=== PATIENT | male | born 1955 | race Caucasian/White ===

== ENCOUNTER → 2017-01-24 | Outpatient (CLI) | payer OTHER ==
[~2017-01-24] MED LIST: CYCL-331 PO; DIAZ10TA PO; HYDR-971 PO; IBUP800T19 PO; LEFL20TA PO; LEVO150T62 PO; LOSA100T2 PO; MULT1TAB52 PO; OLME1TAB25 PO; SIMV20TA3 PO; TADA5TAB PO; UBID10CA5 PO; ZOLP10TA PO
--- NOTE | 2017-01-24 13:25 | RAD ---
Foot x-rays Indication: Metatarsalgia second right toe Technique: 3 views of the right foot Comparison: None Findings: No acute fracture or dislocation. No arthritic process. No soft tissue abnormality. Impression: No acute fracture or dislocation. No evidence of arthritic process. MTDD
== END | disposition home or self-care (01) ==
LOC: DXRADRC 08:29
PROVIDERS: ATTEND Podiatrist Foot & Ankle Surgery
DX: M77.41 Metatarsalgia, right foot (principal)
CPT/HCPCS: 73630

== ENCOUNTER → 2019-05-10 | Outpatient (CLI) | payer OTHER ==
[~2019-05-10] MED LIST changes: +HYDR-3165 PO; -HYDR-971 PO; +SIMV20TA18 PO; -SIMV20TA3 PO
[2019-05-10] MEDS: BARIUM SULFATE 60% 355 ML SUSP PO ONE (09:51)
--- NOTE | 2019-05-10 18:57 | RAD ---
Small bowel follow-through study 05/10/2019 CLINICAL HISTORY: Rapid loose stools in the morning. TECHNIQUE: A small bowel follow-through study was performed under radiographic control. No fluoroscopy was performed. 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 The lung bases are clear. The abdominal bowel gas pattern is nonobstructive. No radiopaque calculus is seen. Very mild S-shaped curvature of the thoracolumbar spine is seen. Degenerative changes are seen involving the lower thoracic and throughout the lumbar spine. The mucosal pattern of the duodenum, jejunum, ileum and terminal ileum is within normal limits. The small bowel transit time is within normal limits. The cecum is in its normal location within the right lower quadrant of the abdomen. No extrinsic mass effect upon the small bowel is seen. IMPRESSION: Negative study. Electronically signed by: Austin Crum MD (05/10/2019 6:54 PM) [id number]
== END | disposition home or self-care (01) ==
LOC: RAD 08:06
PROVIDERS: ATTEND Internal Medicine Gastroenterology
DX: R19.7 Diarrhea, unspecified (principal); M41.85 Other forms of scoliosis, thoracolumbar region; M47.815 Spondylosis without myelopathy or radiculopathy, thoracolumbar region
CPT/HCPCS: 74250

== ENCOUNTER 2021-02-20 11:41 | Inpatient (IN) | payer OTHER ==
[~2021-02-20] VITALS: Ht 182.9 cm; Wt 86.8 kg
[~2021-02-20 11:41] MED LIST changes: +MULT-445 PO; -MULT1TAB52 PO
--- NOTE | 2021-02-20 12:19 | EKG ---
[address] [address] Test Date: 2021-02-20 Test Time: 12:11:49 Pat Name: ROSALBA MARTINEZ Department: Room: Gender: M Shirt Bander: NICOLASA : 1955 Requested By: CARMENZA NATH Order Number: [id number] Reading MD: Measurements Intervals Isabela Rate: 92 P: 59 [place]: 162 QRS: 72 QRSD: 92 T: 55 QT: 358 QTc: 448 Interpretive Statements SINUS RHYTHM NORMAL ECG RI6.02 No previous ECG available for comparison
[2021-02-20 12:30] LABS: BASO % 1 % (0-3); EOS # 0.4 x10^3/uL (0.0-0.7); EOS % 8 % (0-3); HEMATOCRIT 41.3 % (39.0-53.0); HEMOGLOBIN 14.1 g/dL (13.0-17.5); LYMPH # 1.4 x10^3/uL (1.0-4.8); LYMPH % 26 % (24-48); MEAN CORPUSCULAR HEMOGLOBIN 32 pg (25-35); MEAN CORPUSCULAR HGB CONC 34 g/dL (31-37); MEAN CORPUSCULAR VOLUME 95 fL (79-100); MONO # 0.9 x10^3/uL (0.0-1.1); MONO % 17 % (0-9); NEUT # 2.7 x10^3uL (1.8-7.7); NEUT % 49 % (31-73); PLATELET COUNT 370 x10^3/uL (140-400); RED BLOOD COUNT 4.36 x10^6/uL (4.30-5.70); RED CELL DISTRIBUTION WIDTH 13.5 % (11.5-14.5); WHITE BLOOD COUNT 5.5 x10^3/uL (4.0-11.0)
[2021-02-20 12:40] LABS: CALCIUM 9.3 mg/dL (8.5-10.1); CREATININE 2.3 mg/dL (0.7-1.3); GFR 28.8; POTASSIUM 4.1 mmol/L (3.5-5.1)
[2021-02-20 12:45] LABS: ALBUMIN 3.8 g/dL (3.4-5.0); ALBUMIN/GLOBULIN RATIO 1.1 (1.0-1.7); TOTAL BILIRUBIN 0.5 mg/dL (0.2-1.0); TOTAL PROTEIN 7.4 g/dL (6.4-8.2)
[2021-02-20] MEDS ORDERED: IV NORMAL SALINE 1,000ML 1,000 ML IV ONE ×2 (12:45→13:45)
--- NOTE | 2021-02-20 12:45 | PHYS DOC ---
Past History Additional Past Medical Histor: Rheumatoid arthritis, BPH, prostatitis Past Surgical History: Other General Adult EDM: Chief Complaint: ALLERGIC REACTION HPI: HPI: Patient is a 65 year old male with history of rheumatoid arthritis on Humira, BPH, recent diagnosis of prostatitis who presents with generalized weakness, shortness of breath, dizziness since yesterday afternoon. He had been treated for prostatitis since 02/10 with Bactrim, but it was causing GI upset. Yesterday afternoon he was switched to ciprofloxacin by his PCP. Within an hour after taking the ciprofloxacin he began having the symptoms that are persisted throughout the night. He denies any chest pain. No abdominal pain. He has had chills overnight. No outright fevers. He does have some mild dysuria that is worse than it had been previously. No wheezes, he has a rash that was pre-existing to taking ciprofloxacin and has not worsened, no oral swelling. Review of Systems: Review of Systems: Constitutional: Denies fever. Reports chills Eyes: Denies change in visual acuity HENT: Denies nasal congestion or sore throat Respiratory: Denies cough. Reports shortness of breath Cardiovascular: Denies chest pain or edema GI: Denies abdominal pain, nausea, vomiting, bloody stools or diarrhea : Reports dysuria Musculoskeletal: Denies back pain or joint pain Integument: Denies rash Neurologic: Reports dizziness. Denies headache, focal weakness or sensory changes Endocrine: Denies polyuria or polydipsia Lymphatic: Denies swollen glands Psychiatric: Denies depression or anxiety Current Medications: Current Meds: Current Medications Medications (Trade) Dose Ordered Sig/[facility] Start Time Stop Time Status Last Admin Dose Admin Sodium Chloride 1,000 ml @ 1,000 mls/hr 1X ONCE 02/20/21 12:45 02/20/21 13:44 Allergies: Allergies: Allergies Coded Allergies Type Severity Reaction Last Updated Verified No Known Drug Allergies 02/20/21 No Physical Exam: PE: Constitutional: Appears ill. Diaphoretic. Non-toxic. [] HENT: Normocephalic, atraumatic, oropharynx is clear without evidence of edema. Uvula midline.. [] Eyes: conjunctiva normal, no discharge. [] Neck: Normal range of motion, no tenderness, supple, no stridor. [] Cardiovascular:Heart rate regular rhythm, no murmur [] Lungs & Thorax: Bilateral breath sounds clear to auscultation. No wheezes. [] Abdomen: soft, no tenderness, no masses, no pulsatile masses. [] Skin: Warm, dry, maculopapular rash on bilateral arms. No urticaria. [] Extremities: No tenderness, no cyanosis, no clubbing, ROM intact, no edema. [] Neurologic: Alert and oriented X 3, normal motor function, normal sensory function, no focal deficits noted. [] Psychologic: Affect normal, judgement normal, mood normal. [] Current Patient Data: Labs: Laboratory Tests Test 02/20/21 11:56 White Blood Count 5.5 x10^3/uL (4.0-11.0) Red Blood Count 4.36 x10^6/uL (4.30-5.70) Hemoglobin 14.1 g/dL (13.0-17.5) Hematocrit 41.3 % (39.0-53.0) Mean Corpuscular Volume 95 fL (79-100) Mean Corpuscular Hemoglobin 32 pg (25-35) Mean Corpuscular Hemoglobin Concent 34 g/dL (31-37) Red Cell Distribution Width 13.5 % (11.5-14.5) Platelet Count 370 x10^3/uL (140-400) Neutrophils (%) (Auto) 49 % (31-73) Lymphocytes (%) (Auto) 26 % (24-48) Monocytes (%) (Auto) 17 % (0-9) H Eosinophils (%) (Auto) 8 % (0-3) H Basophils (%) (Auto) 1 % (0-3) Neutrophils # (Auto) 2.7 x10^3uL (1.8-7.7) Lymphocytes # (Auto) 1.4 x10^3/uL (1.0-4.8) Monocytes # (Auto) 0.9 x10^3/uL (0.0-1.1) Eosinophils # (Auto) 0.4 x10^3/uL (0.0-0.7) Basophils # (Auto) 0.0 x10^3/uL (0.0-0.2) Vital Signs: Vital Signs Date Time Temp Pulse Resp B/P (MAP) Pulse Ox O2 Delivery O2 Flow Rate FiO2 02/20/21 11:50 98.3 93 18 116/62 (80 99 Room Air EKG: EKG: [] Radiology/Procedures: Radiology/Procedures: [] Impressions: [address] [address] IMAGING REPORT Signed PATIENT: ROSALBA MARTINEZ ACCOUNT: [id number] : 1955 LOCATION: ER AGE: 65 SEX: M EXAM STATUS: REG ER ORD. PHYSICIAN: CARMENZA NATH MD REASON: shortness of breath, dizziness PROCEDURE: CHEST AP ONLY AP portable chest. HISTORY: Short of breath, dizziness AP view was taken of the chest. There is no pneumothorax or pleural effusion. Lungs are clear. Heart is normal in size. There is arthritis in the right shoulder with joint space narrowing and spurring. IMPRESSION: 1. No acute chest disease. Electronically signed by: Calos Peguero MD (02/20/2021 12:48 PM) [id number] DICTATED AND SIGNED BY: CALOS PEGUERO MD DATE: 02/20/211246 CC: CARMENZA NATH MD; KIANA [place] ~MTH0 0 Heart Score: C/O Chest Pain: No Risk Factors: Risk Factors: DM, Current or recent (<one month) smoker, HTN, HLP, family history of CAD, obesity. Risk Scores: Score 0 - 3: 2.5% MACE over next 6 weeks - Discharge Home Score 4 - 6: 20.3% MACE over next 6 weeks - Admit for Clinical Observation Score 7 - 10: 72.7% MACE over next 6 weeks - Early Invasive Strategies Course & Med Decision Making: Course & Med Decision Making Pertinent Labs and Imaging studies reviewed. (See chart for details) Patient is 65-year-old male with history of RA on Humira, and recent diagnosis of prostatitis who presents with chills, generalized weakness, shortness of breath, lightheadedness after switching from Bactrim to ciprofloxacin yesterday. On arrival is afebrile with normal vital signs. Shortly after arrival he had lower blood pressures down to 82/54. Most recently 91/51. He denies any change in symptoms with this blood pressure change. Sepsis work-up with CXR, UA, blood cultures, lactic acid obtained. No evidence of anaphylactic reaction. Considered type III hypersensitivity given he is on a monoclonal antibody. IV fluids started. Will give ceftriaxone. Will continue to monitor. --- Lactic slightly elevated 2.1 BP stable with MAP of 70 currently. GUANACO with creatinine 2.3, from baseline 0.85 last month. potential causes for GUANACO are bactrim, pre-renal, or obstructive. Awaiting urinalysis and have placed an order for RP US to r/o obstructive uropathy. Will request bed for admission. [address] Disclaimer: [employer] Disclaimer: This electronic medical record was generated, in whole or in part, using a voice recognition dictation system. Departure Departure: Impression: Primary Impression: GUANACO (acute kidney injury) Additional Impressions: Hypotension Prostatitis Sepsis Disposition: ADMITTED INPATIENT Admitting Physician: Davidson Caraballo Condition: IMPROVED Referrals: KIANA [place] (PCP) CARMENZA NATH MD Feb 20, 2021 12:45
--- NOTE | 2021-02-20 12:50 | RAD ---
AP portable chest. HISTORY: Short of breath, dizziness AP view was taken of the chest. There is no pneumothorax or pleural effusion. Lungs are clear. Heart is normal in size. There is arthritis in the right shoulder with joint space narrowing and spurring. IMPRESSION: 1. No acute chest disease. Electronically signed by: Calos Peguero MD (02/20/2021 12:48 PM) [id number]
[2021-02-20] MEDS ORDERED: cefTRIAXone SODIUM 1 GM VIAL ONE (13:33)
[2021-02-20] MEDS ORDERED: IV NORMAL SALINE 50ML 50 ML ONE ×3 (13:33→13:52)
[2021-02-20] MEDS ORDERED: PIPERACILLIN/TAZOBACTAM 3.375 GM in IV NORMAL SALINE 50ML 50 ML IV ONE (13:45)
[2021-02-20] MEDS ORDERED: PIPERACILLIN/TAZOBACTAM 3.375 GM VIAL IV ONE ×2 (13:45→13:52)
[2021-02-20] MEDS ORDERED: PIPERACILLIN/TAZOBACTAM 4.5 GM in IV NORMAL SALINE 50ML 50 ML IV ONE (13:45)
--- NOTE | 2021-02-20 13:53 | RAD ---
EXAM: RENAL ULTRASOUND CLINICAL HISTORY: Acute kidney injury R/O HYDRO / Spl. Instructions: / History: COMPARISON: None available. TECHNIQUE: Ultrasound examination of the bilateral kidneys and urinary bladder was performed. FINDINGS: The longitudinal and AP and transverse dimensions of the right kidney are 12.6 cm and 4.8 cm and 5.6 cm respectively. The longitudinal and AP and transverse dimensions of the left kidney are 11.9 cm and 4.9 cm and 4.9 cm respectively. No hydronephrosis or renal mass or perinephric fluid collection is seen on either side. Urinary bladder is mildly distended. It measures 144 cc. No intraluminal echodensities or masses are seen. Bilateral ureteral jets are apparent IMPRESSION: No hydronephrosis. Electronically signed by: Roberto Velasquez MD (02/20/2021 1:51 PM) [id number]
[2021-02-20 15:14] LABS: BACTERIA,URINE 0 /HPF (0-FEW); BILIRUBIN,URINE NEG (NEG); CLARITY,URINE CLEAR; COLOR,URINE YELLOW; GLUCOSE,URINE NEG (NEG); NITRITE,URINE NEG (NEG); RBC,URINE OCC /HPF (0-2); SQUAMOUS EPITHELIAL CELL,UR FEW /LPF; UROBILINOGEN,URINE 0.2 mg/dL (0.2 mg/dL)
[2021-02-20 15:15] LABS: HYALINE CASTS, URINE FEW /HPF
--- NOTE | 2021-02-20 15:23 | HP ---
ADMIT DATE: 02/20/2021 ATTENDING PHYSICIAN: Dr. Caraballo. CHIEF COMPLAINT: Weakness. 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 He has had a history of prostatism and a urinary tract infection. He has had antibiotics. He had a week's worth of Bactrim. He was still symptomatic. He was started on Cipro. Unfortunately, Cipro has a limited coverage. He developed low-grade fevers, chills, myalgias, not feeling well and clinically has symptoms not necessarily of sepsis, but of a systemic inflammatory response syndrome. Blood pressure was marginal, 95 mm systolic. Cultures are still pending. He is admitted then for further IV antibiotics and systemic inflammatory response syndrome. He is immunocompromised. He has rheumatoid arthritis of longstanding and takes monoclonal antibiotics. PAST MEDICAL HISTORY: Significant for degenerative arthritis, carpal tunnel surgery and rheumatoid arthritis. He sees a car tester. CURRENT MEDICATIONS: Include cyclobenzaprine p.r.n. Valium, hydrocodone, ibuprofen, leflunomide, Synthroid, losartan, multivitamin, Benicar, Zocor, Cialis p.r.n., Coenzyme Q10 and Ambien at bedtime. SOCIAL HISTORY: He is a nondrinker, nonsmoker. ALLERGIES: HE IS ALLERGIC INTOLERANT TO BACTRIM. PAST SURGICAL HISTORY: Other surgical history includes thyroidectomy for goiter. He is on Synthroid 150 mcg daily. He sees a car tester. FAMILY HISTORY: Mom is still alive at age 94. Father of lung and brain cancer at age 67. 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 No recent COVID exposure. REVIEW OF SYSTEMS: All other systems reviewed and turned to be negative. PHYSICAL EXAMINATION: GENERAL: When I saw him, this is a very pleasant gentleman who appears younger than his stated age. VITAL SIGNS: Initial vital signs in the ED showed a blood pressure of 95 and then improved to 124/62 mmHg. He was afebrile, oxygen saturation 96% on room air. HEENT: Head is without trauma. Pupils are reactive. Sclerae nonicteric. Oropharynx is clear. NECK: Supple, no bruits identified. LUNGS: Otherwise clear. CARDIOVASCULAR: Regular heart tones. No gallops. ABDOMEN: Soft. EXTREMITIES: Without edema. NEUROLOGIC: Focally intact. SKIN: Warm and dry. I examined his hands and other joints. He has remarkably preserved joints without any severe deformities. PERTINENT LABORATORY STUDIES: His hemoglobin today is 14.1 g/dL, white count 5500. Chemistry panel: Creatinine is up to 2.3 mg%, BUN is 34. Electrolytes within normal range. ASSESSMENT: 1. A 65-year-old gentleman with symptomatic urinary tract infection. 2. Acute on chronic renal failure, probably due to Bactrim. 3. History of rheumatoid arthritis. 4. History of previous thyroidectomy. 5. History of carpal tunnel surgery. PLAN: 1. Admit to the inpatient unit. 2. IV hydration. 3. Rocephin and Zosyn has been ordered. 4. Follow up chemistries. 5. Diet as tolerated. 6. We will hold off his blood pressure meds for now. HILDA DR: Elda TID: [id number]
[2021-02-20 18:20] VITALS: BP 120/76
[2021-02-20 18:48] VITALS: BP 195/87
--- NOTE | 2021-02-20 19:18 | NUR ---
The patient, ROSALBA MARTINEZ, 65 y/o, M admitted by GALINA MORENO MD, was given written information regarding hospital policies, unit procedures and contact persons. Valuables were checked and left with patient.
[2021-02-20] MEDS: IV NORMAL SALINE 1,000ML 1,000 ML IV SCH (19:30)
[2021-02-20] MEDS ORDERED: ADAL40PE SQ (20:41)
[2021-02-20] MEDS: PIPERACILLIN/TAZOBACTAM 3.375 GM in IV NORMAL SALINE 50ML 50 ML IV SCH (21:45)
[2021-02-20 22:01] VITALS: BP 104/61
[2021-02-20 23:39] VITALS: BP 111/69
[2021-02-21] MEDS: IV NORMAL SALINE 1,000ML 1,000 ML IV SCH ×2 (03:00→13:33)
[2021-02-21 05:14] VITALS: BP 127/81
[2021-02-21] MEDS: PIPERACILLIN/TAZOBACTAM 3.375 GM in IV NORMAL SALINE 50ML 50 ML IV SCH ×3 (05:18→20:47)
[2021-02-21] MEDS: LEVOTHYROXINE 150 MCG TABLET PO SCH (05:19)
--- NOTE | 2021-02-21 05:45 | NUR ---
Nursing note: Pt did not sleep much/at all during shift. No c/o pain throughout shift. Pt reported increased urination and slight decrease in frequency of urination from previous day. VSS.
[2021-02-21] MEDS: LEFLUNOMIDE 20 MG PO SCH (08:28)
[2021-02-21 09:28] LABS: CREATININE 1.1 mg/dL (0.7-1.3); GFR 67.4; POTASSIUM 4.1 mmol/L (3.5-5.1)
[2021-02-21 11:31] VITALS: BP 127/72
[2021-02-21 11:33] VITALS: BP_SYST 124; BP_SYST 130; BP_DIAS 67; BP_DIAS 76
[2021-02-21 15:52] VITALS: BP 113/72
[2021-02-21 20:31] VITALS: BP 121/73
--- NOTE | 2021-02-21 20:43 | PN ---
DATE: 02/21/2021 SUBJECTIVE: The patient is resting, slightly propped up in bed, in no apparent respiratory distress. He is awake, alert. On questioning him, he is feeling generally much improved. He denied any fever, chills or rigors. Denied any dysuria, frequency or hematuria. His blood culture has showed no growth after 1 day. PHYSICAL EXAMINATION: GENERAL: When I examined him this morning, he looked well with no pallor, jaundice, or cyanosis. No lymphadenopathy, no thyromegaly, no jugular venous distention. No lower limb edema. VITAL SIGNS: Her heart rate was 72, blood pressure is 130/76, temperature was 98.3, respiratory rate was 18 and oxygen saturation was 96% on room air. HEAD, EYES, EARS, NOSE, AND THROAT: Normocephalic, atraumatic. NECK: Supple. HEART: Normal first and second heart sounds, no gallop or murmur. CHEST: Clear to auscultation, no crepitation or rhonchi. ABDOMEN: Distended, soft, nontender. NEUROLOGIC: He was grossly intact. His intake and output are incompletely recorded. LABORATORY DATA: This morning showed a serum sodium 137, potassium 4.1, chloride 102, bicarbonate 24, anion gap of 11, BUN 24, creatinine was 1.1. Estimated GFR was 67 mL per minute. His blood sugar was 137. His lactic acid is down to 1.3 and calcium was 8. His urinalysis showed that leukocyte esterase was negative, occasional rbc's, 5-10 wbc's and no bacteria. ASSESSMENT: 1. Acute kidney injury, resolved. His creatinine is down from 2.3 down to 1.1. 2. Symptoms as probably suggestive of benign prostatic hypertrophy. 3. Rheumatoid arthritis. 4. Hypothyroidism. 5. Carpal tunnel surgery, unfortunately he is on multiple potential nephrotoxic medications that included ibuprofen. He is also on Benicar, hydrochlorothiazide and Humira as well as leflunomide. PLAN: My plan is to continue with IV antibiotic. Continue with IV fluids for the time being and he probably has to either consider different antihypertensive medication, perhaps like amlodipine. He will be evaluated tomorrow by Dr. Caraballo and if he is stable, he can be discharged home to continue with treatment of his UTI as an outpatient, although his urinalysis was unremarkable and so far the blood cultures are negative. AMM/EKT DR: Manjula TID: [id number]
[2021-02-21 23:49] VITALS: BP 133/71
[2021-02-22] MEDS: IV NORMAL SALINE 1,000ML 1,000 ML IV SCH ×2 (01:07→12:00)
[2021-02-22] MEDS: LEVOTHYROXINE 150 MCG TABLET PO SCH (05:12)
[2021-02-22] MEDS: PIPERACILLIN/TAZOBACTAM 3.375 GM in IV NORMAL SALINE 50ML 50 ML IV SCH (05:12)
[2021-02-22 05:51] VITALS: BP 145/75
[2021-02-22] MEDS: LEFLUNOMIDE 20 MG PO SCH (08:14)
[2021-02-22 09:23] LABS: CALCIUM 8.5 mg/dL (8.5-10.1); CREATININE 0.8 mg/dL (0.7-1.3); GFR 97.3; POTASSIUM 4.3 mmol/L (3.5-5.1)
--- NOTE | 2021-02-22 10:11 | DS ---
DATE OF DISCHARGE: 02/22/2021 ATTENDING PHYSICIAN: Dr. Caraballo. FINAL DISCHARGE DIAGNOSES: 1. Systemic inflammatory response syndrome. 2. Urinary tract infection. 3. Chronic prostatism. 4. Acute on chronic renal failure and kidney injury due to Bactrim, resolved. 5. History of previous thyroidectomy, on replacement. 6. Rheumatoid arthritis, in remission. HISTORY AND PHYSICAL: The patient is a pleasant 65-year-old gentleman, fairly active. He is admitted with symptoms of systemic inflammatory response syndrome and urinary tract infection. The Bactrim he was on was stopped. He had elevation of his serum creatinine. PHYSICAL EXAMINATION: Please see my dictated note. PERTINENT LABORATORY AND X-RAY STUDIES: Admission creatinine was 2.3 mg percent. Repeated the next day with hydration was down to 1.1 mg/dL, BUN 24. Nonfasting blood sugar 126, hemoglobin was 14.1 grams, white count 5500. COURSE IN THE HOSPITAL: The patient was started on intravenous Zosyn. He did well. Dose is adjusted for renal clearance. Cultures remain negative at 48 hours. By the third hospital day, his vital signs are stable. Creatinine back to baseline. Blood pressure is 130/70. He was afebrile. He looked well. He was ambulating without any assistance. He wanted to go home. I recommended 7 more days of Augmentin 875 one p.o. b.i.d. I gave him some refills in case he has further issues down the road. Should he have further prostate issues, it would be worthwhile to refer him to see a urologist as an outpatient. His other home meds are unchanged. He will continue his Humira dose as scheduled, Arava, Synthroid 150 mcg daily, multivitamin and Benicar hydrochlorothiazide dose unchanged. The patient was then discharged from our hospital in stable condition with explicit drug and followup care. Total discharge time is 38 minutes. TI/LAWRENCE DR: Elda TID: [id number] CC: JARRET RAY
--- NOTE | 2021-02-22 13:06 | NUR ---
PT DISCHARGED AT APPROX 1245. PT AMBULATED TO THE DR WITH DISCHARGE INSTRUCTIONS. PT STATES UNDERSTANDING OF INFORMATION AND FOLLOW UP APPTS.
== END 2021-02-22 13:37 | disposition home or self-care (01) | DRG 871 ==
LOC: ER 11:41 → 1 SOUTH 13:38
PROVIDERS: ADMIT Hospitalist; ATTEND Hospitalist
DX: A41.9 Sepsis, unspecified organism (principal); N17.0 Acute kidney failure with tubular necrosis; N39.0 Urinary tract infection, site not specified; D84.9 Immunodeficiency, unspecified; M06.9 Rheumatoid arthritis, unspecified; N40.0 Benign prostatic hyperplasia without lower urinary tract symptoms; N41.9 Inflammatory disease of prostate, unspecified; I95.9 Hypotension, unspecified; E89.0 Postprocedural hypothyroidism; N18.9 Chronic kidney disease, unspecified; T36.8X5A Adverse effect of other systemic antibiotics, initial encounter; M19.011 Primary osteoarthritis, right shoulder; Z20.822 Contact with and (suspected) exposure to COVID-19; Z80.8 Family history of malignant neoplasm of other organs or systems; Z79.899 Other long term (current) drug therapy; Y92.89 Other specified places as the place of occurrence of the external cause
CPT/HCPCS: 36415; 71045; 76770; 80048; 80053; 81001; 83605; 85025; 87040; 87426; 93005; 96360; J2543; U0003; 99285-25; J7030